=== PATIENT | male | born 1980 | race Caucasian/White ===

== ENCOUNTER 2022-05-08 18:30 | Inpatient (IN) | payer BC, MEDICAID ==
[~2022-05-08] VITALS: Ht 182.9 cm; Wt 89.1 kg
[2022-05-08] MEDS ORDERED: LIPITOR 80MG80 MG PO (18:38)
[2022-05-08] MEDS ORDERED: LOPRESSOR 225 MG/TAB PO (18:38)
[2022-05-08] MEDS ORDERED: CLEOCIN HCL300 MG PO (18:38)
[2022-05-08 19:43] LABS: HEMOGLOBIN 12.6 g/dl (13.5-18.0); MEAN CELL VOLUME 91 fl (80.0-100.0); MEAN CORPUSCULAR HEMOGLOBIN 31 pg (27-31); MEAN CORPUSCULAR HGB CONC 34 g/dl (33.0-37.0); MEAN PLATELET VOLUME 9.1 fl (7.4-10.4); PLATELET COUNT 288 K/mm3 (130-400); RED BLOOD COUNT 4.07 M/mm3 (4.20-5.60); REDCELL DISTRIBUTION WIDTH-CV 12.9 % (11.5-14.5)
[2022-05-08 19:50] LABS: ALBUMIN 3.1 gm/dL (3.5-5.0); BILIRUBIN,TOTAL 0.8 mg/dL (0.2-1.2); CALCIUM 9.1 mg/dL (8.4-10.2); CREATININE, serum 0.88 mg/dL (0.72-1.25); POTASSIUM 3.8 mmol/L (3.5-4.5); TOTAL PROTEIN 7.2 gm/dL (6.2-8.1)
[2022-05-08 20:57] LABS: BAND 10 % (0-10); LYMPHOCYTE 10 % (20.0-51.0); NEUTROPHILS 76 % (42.0-75.2); PLATELET ESTIMATE NORMAL (NORMAL)
[2022-05-08] MEDS ORDERED: ASPIRIN 81M81 MG/TA2 PO (22:26)
[2022-05-08 23:32] VITALS: BP 113/63; PULSE 84; TEMP 98.4
[2022-05-09] VITALS (7 sets, daily range): BP systolic 104–154; BP diastolic 53–88; PULSE 54–99; TEMP 97.7–98.9
--- NOTE | 2022-05-09 00:07 | NUR ---
2330 PT ARRIVED TO ROOM 332, PT ASSESSMENT AND ADMISSION COMPLETED AT THIS TIME. PT REQUESTING INFORMATION ON PAIN MEDICATIONS
--- NOTE | 2022-05-09 01:41 | NUR ---
Patient care, medication administration and nursing documentation occurred during a Daylight Savings Time Change.
--- NOTE | 2022-05-09 05:29 | NUR ---
42 yo male admitted for further care and mangement of severe sepsis likely secondary to skin/soft tissue infection involving head/neck. ht 182.9 cm wt 89.1 kg SCr 0.88 with estimated CrCl >60 ml/min half life 8.9 hours Plan: Patient received an initial loading dose of vancomycin 2000 mg x1 in the ED (22.4 mg/kg); will follow with a maintenance regimen of vancomycin 1000 mg q8h to target a goal trough of 10-15 mcg/ml. Will follow patient's renal function, micro data, and vancomycin levels as indicated to assess for any necessary changes to regimen. Thank you for this dosing consult.
--- NOTE | 2022-05-09 06:12 | NUR ---
PT ADMITTED OVERNIGHT TO ROOM 332. PT COMPLAINED OF PAIN BUT NOT DID NOT WANT STRONGER PAIN MEDICATIONS THAN WERE ALREADY ORDERED RN GOT TORADOL UNHELD FOR THE PATIENT. PT RESTING COMFORTABLY IN BED AT THIS TIME. IV ABX ADMINISTERED PER MAR, IV FLUIDS CONTINUE TO INFUSE INTO PTS R AC IV. NO NEW REQUESTS AT THIS TIME
[2022-05-09 06:53] LABS: HEMOGLOBIN 11.3 g/dl (13.5-18.0); MEAN CELL VOLUME 94 fl (80.0-100.0); MEAN CORPUSCULAR HEMOGLOBIN 31 pg (27-31); MEAN CORPUSCULAR HGB CONC 33 g/dl (33.0-37.0); MEAN PLATELET VOLUME 9.6 fl (7.4-10.4); PLATELET COUNT 289 K/mm3 (130-400); RED BLOOD COUNT 3.64 M/mm3 (4.20-5.60)
[2022-05-09 06:54] LABS: HEMATOCRIT 34.1 % (42.0-52.0)
[2022-05-09 07:02] LABS: CALCIUM 8.9 mg/dL (8.4-10.2); CREATININE, serum 0.84 mg/dL (0.72-1.25); POTASSIUM 4.1 mmol/L (3.5-4.5)
--- NOTE | 2022-05-09 07:04 | NUR ---
SPOKE WITH LAB REGARDING WBC INCREASE TO 20.6. CALLED TJ ROCHA REGARDIG IT AND SHE WAS EXPECTING IT TO GO UP. CONTINUE WITH ATB.
[2022-05-09 07:23] LABS: INR 1.2 (0.8-3.0); PROTHROMBIN TIME 14.2 SECONDS (9.7-12.8)
[2022-05-09 09:33] LABS: BAND 9 % (0-10); LYMPHOCYTE 8 % (20.0-51.0); NEUTROPHILS 74 % (42.0-75.2)
[2022-05-09 09:35] LABS: PLATELET ESTIMATE NORMAL (NORMAL)
--- NOTE | 2022-05-09 10:19 | NUR ---
ASSESSMENT DONE ORDER. PATIENT IN BED WHEN I VISIT HIM . HAS ENEMA ON LEFT UPPER FACE AREA. RED NOTED. ER TRACE THE AREA AND IT HAS NOT MOVE OR SPREAD. PATIENT STATED THAT THE ATB THAT WE ARE GIVEN HIM IS SLOWLY WORKING. PAITENT STATED THAT HE NOTICES THAT HIS THROAT FEELS SLIGHTLY BETTER. PATIENT ALERT AND ORIENTED. ABLE TO GET UP AND MOVE AROUND. LUNG CLEAR. BOWEL SOUND ACTIVE
--- NOTE | 2022-05-09 15:16 | NUR ---
PATIENT HAD A SHOWER TODAY. PAIN IS A 5/6 AT THIS TIME AND IS AWARE THAT HE WILL GET HIS TORADOL IV IN 1.5 HOUR. ATB WAS RUNNING ORDER WITH FLUIDS
--- NOTE | 2022-05-09 15:40 | NUR ---
SW met with pt to complete intake. Pt lives at home with his , Doris @ [phone] and reports he does not have a DPOA-HC and is not interested at this time to complete one. Pt reports he is independent on all ADLs and does not use any DMEs. PCP is Rodrick Horton in [place], [place] and gets medications currently at [facility]. Pt lives in [place], [place]. No other needs at this time. SW await for further recommendations and follow up as needed.
--- NOTE | 2022-05-10 01:05 | NUR ---
RN RECEIVED NOTIFICATION THAT PATIENTS HEART RATE DROPPED INTO THE 30S AND HEART RATE HAS BEEN HANGING IN THE 40S AND 50S LUZ MARIA ROLLINS NOTIFIED. RN TO CONTACT IF PTS HEART RATE CONTINUES TO DROP INTO THE 30S OR SUSTAINS
[2022-05-10 03:51] VITALS: BP 114/71; BP 136/43; PULSE 49; TEMP 97.5
[2022-05-10 06:39] LABS: CALCIUM 8.7 mg/dL (8.4-10.2); CREATININE, serum 0.82 mg/dL (0.72-1.25); POTASSIUM 4.3 mmol/L (3.5-4.5)
[2022-05-10 06:49] LABS: HEMOGLOBIN 10.5 g/dl (13.5-18.0); MEAN CELL VOLUME 93 fl (80.0-100.0); MEAN CORPUSCULAR HEMOGLOBIN 31 pg (27-31); MEAN CORPUSCULAR HGB CONC 34 g/dl (33.0-37.0); MEAN PLATELET VOLUME 9.6 fl (7.4-10.4); PLATELET COUNT 307 K/mm3 (130-400); RED BLOOD COUNT 3.36 M/mm3 (4.20-5.60); REDCELL DISTRIBUTION WIDTH-CV 13.3 % (11.5-14.5)
--- NOTE | 2022-05-10 07:04 | NUR ---
Shift report received from [employer] shift lead RN. Pt sleeping supine. Call light is in his reach.
[2022-05-10 07:19] LABS: HEMATOCRIT 31.2 % (42.0-52.0)
--- NOTE | 2022-05-10 07:29 | NUR ---
Informed by charge nurse that pt's WBC is 21. Dr. Méndez notified.
[2022-05-10 07:38] VITALS: BP 110/72; PULSE 55; TEMP 97.9
[2022-05-10 08:17] LABS: BAND 4 % (0-10); LYMPHOCYTE 11 % (20.0-51.0); NEUTROPHILS 76 % (42.0-75.2); PLATELET ESTIMATE NORMAL (NORMAL)
--- NOTE | 2022-05-10 09:32 | NUR ---
Pt resting supine in bed watching television. Left sided facial swelling remains. Pt reports pain at 6/10 at this time. Denies nausea, STEVENS, chest pain. Pt remains independent in his room. LR infusing to left ac site w/out sx of infiltration. Pt denies additional needs at this time. Call light is in his reach.
[2022-05-10 12:46] VITALS: BP 135/89; PULSE 62; TEMP 98
[2022-05-10 16:56] VITALS: BP 130/71; PULSE 48; TEMP 98.1
[2022-05-10 20:18] VITALS: BP 130/81; PULSE 55; TEMP 98.1
--- NOTE | 2022-05-10 21:06 | NUR ---
Patient A/Ox4, head to toe assessment done, see shift assessment, reports pain at 8/10 and he understood and willing to wait for his scheduled toradol and tylenol, IV antibiotics given see emar, denies further needs, call light and personal items within reach, will continue to monitor.
[2022-05-10 23:10] VITALS: BP 136/76; PULSE 46; TEMP 98.3
[2022-05-11 03:35] VITALS: BP 129/79; PULSE 50; TEMP 98.2
--- NOTE | 2022-05-11 06:24 | NUR ---
Patient had an uneventful night, denies further needs at this time, will report off to dayshift nurse.
[2022-05-11 07:55] LABS: HEMOGLOBIN 10.6 g/dl (13.5-18.0); MEAN CELL VOLUME 91 fl (80.0-100.0); MEAN CORPUSCULAR HEMOGLOBIN 31 pg (27-31); MEAN CORPUSCULAR HGB CONC 34 g/dl (33.0-37.0); MEAN PLATELET VOLUME 9.5 fl (7.4-10.4); PLATELET COUNT 363 K/mm3 (130-400); REDCELL DISTRIBUTION WIDTH-CV 13.4 % (11.5-14.5)
[2022-05-11 07:56] LABS: HEMATOCRIT 30.9 % (42.0-52.0)
[2022-05-11 08:00] VITALS: BP 137/84; PULSE 52; TEMP 98.4
[2022-05-11 08:09] LABS: CALCIUM 8.5 mg/dL (8.4-10.2); CREATININE, serum 0.87 mg/dL (0.72-1.25); POTASSIUM 4.8 mmol/L (3.5-4.5)
--- NOTE | 2022-05-11 09:50 | NUR ---
Pt. sitting up in bed. Pt. is A&OX3, assessment compelte. INT to lt. ac patent. Pt. denies pain or other needs. call light within reach.
[2022-05-11 12:00] VITALS: BP 144/84; PULSE 53; TEMP 98.2
--- NOTE | 2022-05-11 13:45 | NUR ---
EMS has arrived to transfer. Packet given to EMS. Pt. escorted out with EMS.
== END 2022-05-11 13:45 | disposition short-term general hospital (02) | DRG 871 ==
LOC: COL.ER 18:30 → SURG 21:59
PROVIDERS: Internal Medicine; Nurse Practitioner Family; Physician Assistant; ADMIT Student in an Organized Health Care Education/Training Program
DX: A41.9 Sepsis, unspecified organism (principal); K65.9 Peritonitis, unspecified; L03.221 Cellulitis of neck; L03.211 Cellulitis of face; K12.2 Cellulitis and abscess of mouth; R00.1 Bradycardia, unspecified; T44.7X5A Adverse effect of beta-adrenoreceptor antagonists, initial encounter; I25.10 Atherosclerotic heart disease of native coronary artery without angina pectoris; L02.421 Furuncle of right axilla; K05.30 Chronic periodontitis, unspecified; I88.9 Nonspecific lymphadenitis, unspecified; I10 Essential (primary) hypertension; E78.5 Hyperlipidemia, unspecified; I25.2 Old myocardial infarction; Z95.5 Presence of coronary angioplasty implant and graft; Z86.74 Personal history of sudden cardiac arrest; Z87.891 Personal history of nicotine dependence; Z79.82 Long term (current) use of aspirin; Z88.1 Allergy status to other antibiotic agents; Z88.8 Allergy status to other drugs, medicaments and biological substances
CPT/HCPCS: J0295; J1100; J1885; J1956; J2543; J3370; J7030; J7040; J7120; Q9967